=== PATIENT | female | born 1990 | race American Indian/Alaskan Native ===

== ENCOUNTER 2017-05-27 03:05 | Emergency (ER) | payer MEDICAID ==
[2017-05-27 06:13] LABS: Basophils % (Auto) 0.5 % (0.0-1.8); Eosinophils % (Auto) 2.8 % (0.0-4.3); Hematocrit 39.9 % (30.3-42.9); Hemoglobin 12.9 gm/dl (10.1-14.3); Mean Corpuscular HGB Conc 32 % (30-34); Mean Corpuscular Hemoglobin 28 pg (28-32); Mean Corpuscular Volume 88 fl (79-97); Platelet Count 270 K/mm3 (140-440); Red Blood Count 4.54 M/mm3 (3.65-5.03); Red Cell Distribution Width 12.9 % (13.2-15.2); White Blood Count 7.9 K/mm3 (4.5-11.0)
[2017-05-27 06:34] LABS: Alanine Aminotransferase 10 units/L (7-56); Albumin 4.6 g/dL (3.9-5); Albumin/Globulin Ratio 1.7 %; Alkaline Phosphatase 49 units/L (35-129); Anion Gap 21 mmol/L; BUN/Creatinine Ratio 13; Blood Urea Nitrogen 8 mg/dL (7-17); Calcium 9.5 mg/dL (8.4-10.2); Carbon Dioxide 24 mmol/L (22-30); Chloride 103.3 mmol/L (98-107); Glucose 85 mg/dL (65-100); Lipase 20 units/L (13-60); Potassium 4.2 mmol/L (3.6-5.0); Sodium 144 mmol/L (137-145); Total Protein 7.3 g/dL (6.3-8.2)
[2017-05-27 07:35] LABS: Bilirubin,Urine NEG (Negative); Blood,Urine SM (Negative); Ketones,Urine NEG (Negative); Leukocyte Esterase,Urine SM (Negative); Mucus,Urine FEW /HPF; Nitrite,Urine NEG (Negative); Protein,Urine <15 mg/dL mg/dL (Negative)
[2017-05-27] MEDS ORDERED: MACROBID PO ONE (13:09)
--- NOTE | 2017-05-27 13:14 | Emergency Department Report ---
HPI - General Chief Complaint: Abdominal Pain Time Seen by Provider: 05/27/17 12:11 - HPI HPI: This is a 26 year-old female who presents the emergency department with complaint of low back pain that has been going on for the past month. It is mostly to the sides and sometimes will cause some sharp pains that will radiate up. She denies any problems with bowel or bladder, numbness or paresthesias or any neurological deficits. Also, despite the fact that she denies any dysuria or difficulty with urination, the patient thinks that she has gotten another urinary tract infection. She said she had one about one month ago and took some antibiotics but lately she has been having some intermittent itching and feels that this is consistent with a UTI. She denies any fever, chest pain, nausea, vomiting, vaginal bleeding or discharge. She took some Tylenol for her symptoms without much relief. She has no problems with ambulation. She does not have a primary care physician. No recent travel or sick contacts at home. ED Past Medical Hx - Past Medical History Additional medical history: Bronchitis - Surgical History Additional Surgical History: c-sec x 1 - Social History Smoking Status: Current Every Day Smoker - Medications Home Medications: Home Medications Medication Instructions Recorded Confirmed Last Taken Type ALBUTEROL Inhaler [ProAir HFA 2 puff IH QID PRN #1 inhalation 02/25/13 Unknown Rx Inhaler] Hydrocodone Bit/Homatrop Me-Br 5 ml PO Q4H PRN #120 ml 02/25/13 Unknown Rx [Hydrocodone-Homatropine Syr 5-1.5 mg/5ml] HYDROcodone/ACETAMINOPHEN [[place] 1 each PO Q6HR PRN #20 tablet 08/27/13 Unknown Rx 5/325 Tablet] Loratadine [Claritin] 10 mg PO DAILY #30 tablet 08/27/13 Unknown Rx Benzocaine/Menthol [Cepacol Sore 1 each MM Q4H PRN #1 lozenge 08/22/16 Unknown Rx Throat Lozenge] Acetaminophen/Codeine [Tylenol #3] 1 tab PO Q6H PRN #12 tab 12/16/16 Unknown Rx Cephalexin [Keflex] 500 mg PO BID #14 capsule 12/16/16 Unknown Rx Ibuprofen [Motrin] 600 mg PO Q8H PRN #15 tablet 12/16/16 Unknown Rx methOCARBAMOL [Robaxin TAB] 500 mg PO Q6H PRN #15 tablet 12/16/16 Unknown Rx Cyclobenzaprine [Flexeril] 10 mg PO BID PRN #12 tablet 05/27/17 Unknown Rx Nitrofurantoin [place]/M-Cryst 100 mg PO Q12HR #14 capsule 05/27/17 Unknown Rx [Macrobid CAP] ED Review of Systems ROS: Stated complaint: ABDOMINAL AND BACK PAIN Other details as noted in HPI Comment: All other systems reviewed and negative Constitutional: denies: chills, fever Eyes: denies: eye pain, eye discharge, vision change ENT: denies: ear pain, throat pain Respiratory: denies: cough, shortness of breath, wheezing Cardiovascular: denies: chest pain, palpitations Gastrointestinal: denies: abdominal pain, nausea, diarrhea Genitourinary: denies: dysuria, discharge Musculoskeletal: back pain. denies: arthralgia Skin: denies: rash, lesions Neurological: denies: headache, weakness, paresthesias Physical Exam - Physical Exam Vital Signs: Vital Signs 05/27/17 05/27/17 05/27/17 03:24 05:14 12:53 Temperature 98.0 F 98.0 F Pulse Rate 93 H 92 H Respiratory 19 20 Rate Blood Pressure 108/60 108/60 Blood Pressure [Left] O2 Sat by Pulse 98 98 95 Oximetry 05/27/17 12:56 Temperature 98.1 F Pulse Rate 74 Respiratory 20 Rate Blood Pressure Blood Pressure 100/44 [Left] O2 Sat by Pulse 97 Oximetry Physical Exam: GENERAL: The patient is well-developed well-nourished. HENT: Normocephalic. Atraumatic. Patient has moist mucous membranes. EYES: Extraocular motions are intact. Pupils equal reactive to light bilaterally. NECK: Supple. Trachea is midline. CHEST/LUNGS: Clear to auscultation. There is no respiratory distress noted. HEART/CARDIOVASCULAR: Regular. There is no tachycardia. There is no murmur. ABDOMEN: Abdomen is soft, nontender. Patient has normal bowel sounds. There is no abdominal distention. SKIN: Skin is warm and dry. NEURO: The patient is awake, alert, and oriented. The patient is cooperative. The patient has no focal neurologic deficits. The patient has normal speech and gait. Cranial nerves II through XII grossly intact. MUSCULOSKELETAL: There is no tenderness or deformity. There is no limitation range of motion. There is no evidence of acute injury. Muscle strength 5 out of 5 upper and lower extremities bilaterally including EHL. BACK: No midline thoracic or lumbar tenderness palpation, step-off or deformity. There is some reproducible bar paraspinal tenderness to palpation. ED Course Vital Signs 05/27/17 05/27/17 05/27/17 03:24 05:14 12:53 Temperature 98.0 F 98.0 F Pulse Rate 93 H 92 H Respiratory 19 20 Rate Blood Pressure 108/60 108/60 Blood Pressure [Left] O2 Sat by Pulse 98 98 95 Oximetry 05/27/17 12:56 Temperature 98.1 F Pulse Rate 74 Respiratory 20 Rate Blood Pressure Blood Pressure 100/44 [Left] O2 Sat by Pulse 97 Oximetry ED Medical Decision Making - Lab Data Result diagrams: 05/27/17 05:52 05/27/17 05:52 - Medical Decision Making The patient presents with some low back pain that is been going on for a month and also accurately predicts that she has a urinary tract infection. She was treated with some Macrobid and given a prescription for a one-week course. Her back pain is paraspinal and not midline. She does not have any numbness or paresthesias, problems with bowel or bladder any neurological deficits. Low probability of any of the emergent back condition such as cauda equina, epidural abscess or cord compression syndrome. She was given a small dose of muscle relaxants to use and understands the sedating nature of this medication and when it is appropriate to take it. She's been given a referral for primary care. She was encouraged to return to the ER with any worsening of her symptoms or any acute distress. - Differential Diagnosis UTI, muscle spasm, back sprain Critical Care Time: No Critical care attestation.: If time is entered above; I have spent that time in minutes in the direct care of this critically ill patient, excluding procedure time. ED Disposition Clinical Impression: Back pain Qualifiers: Back pain location: low back pain Chronicity: chronic Back pain laterality: bilateral Sciatica presence: without sciatica Qualified Code(s): M54.5 - Low back pain UTI (urinary tract infection) Qualifiers: Urinary tract infection type: acute cystitis Hematuria presence: without hematuria Qualified Code(s): N30.00 - Acute cystitis without hematuria Disposition: DC-01 TO HOME OR SELFCARE Is pt being admited?: No Condition: Stable Instructions: Urinary Tract Infection in Women (ED), Back Pain (ED) Additional Instructions: Please follow up with a primary care physician in the next few days. Take the antibiotics as prescribed. Return to the emergency Department with any worsening of her symptoms, numbness, trouble with movement, development of fever , or any acute distress. You have been prescribed a medication that is sedating and therefore should not be taken prior to driving, working, and responsible for children and in no way should be mixed with alcohol of any quantity. Prescriptions: Cyclobenzaprine [Flexeril] 10 mg PO BID PRN #12 tablet PRN Reason: Muscle Spasm Nitrofurantoin [place]/M-Cryst [Macrobid CAP] 100 mg PO Q12HR #14 capsule Referrals: RAYRAY BARNETT MD [Primary Care Provider] - 3-5 Days [facility] [Outside] - 3-5 Days Time of Disposition: 13:16
[2017-05-27 14:17] VITALS: BP 103/68
== END 2017-05-27 13:44 | disposition home or self-care (01) ==
LOC: ED 03:05
DX: N39.0 Urinary tract infection, site not specified (principal); F17.200 Nicotine dependence, unspecified, uncomplicated
CPT/HCPCS: 36415; 80053; 81001; 81025; 83690; 85025; 99283